=== PATIENT | male | born 1990 | race Caucasian/White ===

== ENCOUNTER 2020-12-09 10:22 | Emergency (ER) | payer SELFPAY ==
[2020-12-09 11:20] LABS: Absolute Lymphocytes (CBC) 3.8 K/uL (0.7-4.9); Basophils % 0.9 % (0-1.3); Hematocrit 44.7 % (39.6-49.0); Lymphocytes % 38.1 % (15.3-44.8); MPV 8.3 fL (7.6-11.3); RBC Red Blood Cell Count 4.71 M/uL (4.33-5.43)
[2020-12-09 11:38] LABS: Protime INR 1.21
[2020-12-09] MEDS ORDERED: NA CHLORIDE 0.9% 1,000 ML ONE (11:59)
[2020-12-09] MEDS ORDERED: LORazepam 2 MG/ML VIAL ONE (11:59)
[2020-12-09 12:01] LABS: ALT/SGPT 15 U/L (12-78); AST/SGOT 11 U/L (15-37); Albumin 4.5 g/dL (3.4-5.0); Alkaline Phosphatase 63 U/L (45-117); BUN Blood Urea Nitrogen 12 mg/dL (7-18); Bicarbonate 23 mmol/L (21-32); Bilirubin Direct 0.1 mg/dL (0-0.2); Bilirubin Total 0.6 mg/dL (0.2-1.0); Glucose Level 107 mg/dL (74-106); Potassium 3.5 mmol/L (3.5-5.1); Protein, Total 8.6 g/dL (6.4-8.2); Sodium Level 138 mmol/L (136-145)
[2020-12-09] MEDS ORDERED: NICOTINE 21 MG/PAT TD ONE (13:03)
--- NOTE | 2020-12-09 14:19 | ER ---
Nurse's Notes [facility] Name: Eladio Villagomez Age: 30 yrs Sex: Male : 1990 Arrival Date: 12/09/2020 Time: 10:23 Bed 16 Private MD: Diagnosis: Major depressive disorder, recurrent;Attention-deficit hyperactivity disorder, unspecified type;Suicidal ideations Presentation: 12/09 10:24 Note Pt and waterworks chief engineer taken to triage room. Introduced self (RN) then asked how ca1 waterworks chief engineer is related to pt. Started taking VS. Machine did not register BP, pt was asked to sit back a bit and relax arm where BP cuff was at to cycle BP machine again. Thelma states, "you know this is a crisis, you gotta be patient with him, I want a another nurse and step out of the room". Thelma stood up and was belligerent. Called community health program coordinator to call CN and notified situation. Ivory registration brought pt and fiance to room 16. 11:05 Chief complaint: Patient states: suicidal ideation. Coronavirus screen: At this time, iw the client does not indicate any symptoms associated with coronavirus-19. Ebola Screen: Patient negative for fever greater than or equal to 101.5 degrees Fahrenheit, and additional compatible Ebola Virus Disease symptoms Patient denies exposure to infectious person. Patient denies travel to an Ebola-affected area in the 21 days before illness onset. No symptoms or risks identified at this time. Risk Assessment: Do you want to hurt yourself or someone else? Patient reports desire/thoughts of hurting themselves or someone else. Provider notified. 11:05 Acuity: TREY 2 iw 11:05 Method Of Arrival: Ambulatory iw 12:06 Initial Sepsis Screen: Does the patient meet any 2 criteria? No. Patient's initial jd3 sepsis screen is negative. Does the patient have a suspected source of infection? No. Patient's initial sepsis screen is negative. Onset of symptoms was December 08, 2020. Historical: - Allergies: 12:06 No Known Allergies; jd3 - Home Meds: 12:06 None [Active]; jd3 - PMHx: 12:06 None; jd3 - PSHx: 12:06 None; jd3 - Immunization history:: Adult Immunizations unknown. - Social history:: Smoking status: Patient reports the use of cigarette tobacco products, denies chronic smoking, but will smoke occasionally. - Family history:: not pertinent. Screenin:05 Abuse screen: Denies threats or abuse. Nutritional screening: No deficits noted. jd3 Tuberculosis screening: No symptoms or risk factors identified. Fall Risk Ambulatory Aid- None/Bed Rest/Nurse Assist (0 pts). Gait- Normal/Bed Rest/Wheelchair (0 pts) Mental Status- Oriented to own ability (0 pts). Total [place] Fall Scale indicates No Risk (0-24 pts). Assessment: 10:30 Reassessment: pt states he is here for a mental evaluation and is having suicidal iw thoughts. 10:35 Reassessment: Elan Chu called to ER, pt and visitor remain noncompliant with hospital iw policy, pt is not allowed to have a visitor in room with him due to the nature of his visit. 10:44 Reassessment: afterschool and Brigette Wiggins RN in lobby speaking with pt and visitor, iw pt agitated, speaking loudly, visitor remains adamant that she needs to be in room with pt. 10:50 Reassessment: KYLEE HOLLAND in lobby speaking with pt and visitor. iw 11:04 Reassessment: pt has agreed to be evaluated by ER MD and visitor is to remain in lobby iw or outside, both verbalized understanding of policy. 11:30 General: Appears in no apparent distress. comfortable, Behavior is cooperative, jd3 anxious, restless. Pain: Denies pain. Neuro: Level of Consciousness is awake, alert, obeys commands, Oriented to person, place, time, situation, Reports occasional dizziness and falling down for a "long time now.". Cardiovascular: Denies chest pain, Capillary refill < 3 seconds Patient's skin is warm and dry. Rhythm is regular. Respiratory: Airway is patent Respiratory effort is even, unlabored, Respiratory pattern is regular, symmetrical, Denies cough, shortness of breath. GI: No signs and/or symptoms were reported involving the gastrointestinal system. : No signs and/or symptoms were reported regarding the genitourinary system. EENT: No signs and/or symptoms were reported regarding the EENT system. Derm: Skin is intact, Skin is dry, Skin is normal, Skin temperature is warm. Musculoskeletal: Circulation, motion, and sensation intact. Range of motion: intact in all extremities. 12:07 Reassessment: Patient appears in no apparent distress at this time. No changes from jd3 previously documented assessment. Patient and/or family updated on plan of care and expected duration. Pain level reassessed. Patient is alert, oriented x 3, equal unlabored respirations, skin warm/dry/pink. 12:58 Reassessment: Patient appears in no apparent distress at this time. Patient and/or jd3 family updated on plan of care and expected duration. Pain level reassessed. Patient is alert, oriented x 3, equal unlabored respirations, skin warm/dry/pink. pt report feeling slightly better, reports wanting a cigarette. 13:30 Reassessment: Patient appears in no apparent distress at this time. No changes from jd3 previously documented assessment. Patient and/or family updated on plan of care and expected duration. Pain level reassessed. Patient is alert, oriented x 3, equal unlabored respirations, skin warm/dry/pink. 14:03 Reassessment: Patient appears in no apparent distress at this time. Patient and/or jd3 family updated on plan of care and expected duration. Pain level reassessed. Patient is alert, oriented x 3, equal unlabored respirations, skin warm/dry/pink. Patient states feeling better. 14:31 Reassessment: Patient appears in no apparent distress at this time. Patient and/or jd3 family updated on plan of care and expected duration. Pain level reassessed. Patient is alert, oriented x 3, equal unlabored respirations, skin warm/dry/pink. pt reporting no SI or HI thoughts at this time. even and steady gait upon discharge, pt reported understanding of discharge instructions and plans for fallow-up. Psych: 11:30 [place] Suicide Severity Screening: In the past month, have you wished you were jd3 or wished you could go to sleep and not wake up? Patient responds "yes." Based off the client's responses additional C-SSRS screening is required. "In the past month, have you actually had any thoughts of killing yourself?" Patient responds "no." "In your lifetime, have you ever done anything, started to do anything, or prepared to do anything to end your life?" Patient responds "yes." Patient reports suicidal intent within 3 past months. pt reporting "wanting help in fear of loosing everything." was seen in the past for the psych problem was non-compliment with meds. pt reports realizing the need for meds and help at this time. Subjective: Patient's mood is elevated, hopeless, Delusions are denied, Hallucinations are denied Having thoughts of suicide. Plan for suicide is to cut self with knife. Objective: Patient is cooperative, restless, Speech is loud, Affect is appropriate. Interventions: Removed personal items and placed in bag. Patient placed in hospital gown. Searched person for dangerous items. Belonging list filled out. Safety Checks: Personal items have been removed. Door is open. No visitors are present at this time. Pt denies substance abuse. 14:33 Commitment: Patient will be a voluntary commitment. jd3 Vital Signs: 11:51 BP 153 / 90; Pulse 81; Resp 17 S; Pulse Ox 97% on R/A; jd3 ED Course: 10:23 Patient arrived in ED. as 10:55 [address] pd of pt and girlfriend being aggressive with staff. bd 10:59 Augstin Goode MD is Attending Physician. shantal 11:06 Triage completed. iw 11:09 Initial lab(s) drawn, by me, sent to lab. Inserted saline lock: 20 gauge in right sr5 antecubital area, using aseptic technique. Blood collected. 11:39 Jose Elias Sky, RN is Primary Nurse. jd3 12:05 Arm band placed on. jd3 12:06 Patient has correct armband on for positive identification. Placed in gown. Bed in low jd3 position. Side rails up X 1. Valuables inventory done. Given to family. Locked in safe. See valuables checklist. Pulse ox on. NIBP on. 12:07 Acetaminophen Sent. mh5 12:07 Basic Metabolic Panel Sent. mh5 12:07 CBC with Diff Sent. mh5 12:08 ETOH Level Sent. mh5 12:09 Warm blanket given. mh5 12:09 EKG done, by ED staff, reviewed by Agustin Goode MD. 5 12:10 Safety checks: Items removed: yes. Door open/sign placed on door: yes. Family/friend mh5 present: no. Sitter present: Yes. 14:17 Alvaro Sanders MD is Referral Physician. [facility] 14:33 No provider procedures requiring assistance completed. IV discontinued, intact, jd3 bleeding controlled, No redness/swelling at site. Pressure dressing applied. Administered Medications: 11:50 Drug: NS 0.9% 1000 ml Route: IV; Rate: 1 bolus; Site: right antecubital; jd3 12:50 Follow up: Response: No adverse reaction; IV Status: Completed infusion; IV Intake: jd3 1000ml 11:50 Drug: Ativan 1 mg Route: IVP; Site: right antecubital; jd3 12:50 Follow up: Response: No adverse reaction jd3 13:00 Drug: Nicoderm CQ 21 mg/24 hr 1 patches Route: Transdermal; Site: affected area; jd3 14:36 Follow up: Response: No adverse reaction jd3 Intake: 12:50 IV: 1000ml; Total: 1000ml. jd3 Outcome: 14:18 Discharge ordered by . shantal 14:33 Discharged to home ambulatory, with family. jd3 14:33 Condition: stable 14:33 Discharge instructions given to patient, Instructed on discharge instructions, follow up and referral plans. medication usage, Demonstrated understanding of instructions, follow-up care, medications, Prescriptions given X 1. 14:37 Patient left the ED. jd3 Signatures: Twyla Hernandez Corey, MD MD cha Martinez, Amelia as Williams, Irene, RN RN iw Resecker, Sam, RN RN 5 Veronica March Jonathon, RN RN jd3 Acob, Cheryl, RN RN ca1 Corrections: (The following items were deleted from the chart) 11:53 11:51 BP 153 / 101; Pulse 81bpm; Resp 17bpm; Spontaneous; Pulse Ox 97% RA; jd3 jd3 12:03 11:58 [place] Suicide Severity Screening: In the past month, have you wished you were jd3 or wished you could go to sleep and not wake up? Patient responds "yes." "In the past month, have you actually had any thoughts of killing yourself?" Patient responds "no." "In your lifetime, have you ever done anything, started to do anything, or prepared to do anything to end your life?" Patient responds "yes." Patient reports suicidal intent within 3 past months. jd3 12:05 11:58 Subjective: Patient's mood is elevated, hopeless, Delusions are denied, jd3 Hallucinations are denied Having thoughts of suicide. Plan for suicide is to cut self with knife [facility] : 11:58 Objective: Patient is cooperative, restless, Speech is loud, Affect is j appropriate, [facility] : 11:58 Interventions: Removed personal items and placed in bag. Patient placed in [facility] hospital gown. Searched person for dangerous items. Belonging list filled out. [facility] : 11:58 Safety Checks: Personal items have been removed. Door is open. No visitors are [facility] present at this time. [facility] : 11:58 Pt denies substance abuse [place] [id number] : 11:58 [place] Suicide Severity Screening: In the past month, have you wished you were j or wished you could go to sleep and not wake up? Patient responds "yes." Based off the client's responses additional C-SSRS screening is required. "In the past month, have you actually had any thoughts of killing yourself?" Patient responds "no." "In your lifetime, have you ever done anything, started to do anything, or prepared to do anything to end your life?" Patient responds "yes." Patient reports suicidal intent within 3 past months. pt reporting "wanting help in fear of loosing everything." was seen in the past for the psych problem was non-compliment with meds. pt reports realizing the need for meds and help at this time. jd3
--- NOTE | 2020-12-09 14:19 | EDPHYS ---
Physician Documentation [facility] Name: Eladio Villagomez Age: 30 yrs Sex: Male : 1990 Arrival Date: 12/09/2020 Time: 10:23 Bed 16 Private MD: ED Physician Agustin Goode HPI: 12/09 13:10 This 30 yrs old Male presents to ER via Ambulatory with complaints of shantal Depression, Suicidal Ideation. 13:10 The patient presents to the emergency department with anxiety, depression, suicide shantal ideation, but the patient has no formulated plan. Onset: The symptoms/episode began/occurred 2 day(s) ago. Past psychiatric history: Prior diagnosis: addiction history, depression, Psychiatric medications include: none. Associated signs and symptoms: Pertinent positives; anxiety, depression, suicide ideation. Severity of symptoms: At their worst the symptoms were mild in the emergency department the symptoms are unchanged. The patient has experienced similar episodes in the past, multiple times. Historical: - Allergies: 12:06 No Known Allergies; jd3 - Home Meds: 12:06 None [Active]; jd3 - PMHx: 12:06 None; jd3 - PSHx: 12:06 None; jd3 - Immunization history:: Adult Immunizations unknown. - Social history:: Smoking status: Patient reports the use of cigarette tobacco products, denies chronic smoking, but will smoke occasionally. - Family history:: not pertinent. ROS: 13:10 Constitutional: Negative for fever, chills, and weight loss, Eyes: Negative for injury, shantal pain, redness, and discharge, ENT: Negative for injury, pain, and discharge, Neck: Negative for injury, pain, and swelling, Cardiovascular: Negative for chest pain, palpitations, and edema, Respiratory: Negative for shortness of breath, cough, wheezing, and pleuritic chest pain, Abdomen/GI: Negative for abdominal pain, nausea, vomiting, diarrhea, and constipation, Back: Negative for injury and pain, : Negative for injury, bleeding, discharge, and swelling, MS/Extremity: Negative for injury and deformity, Skin: Negative for injury, rash, and discoloration, Neuro: Negative for headache, weakness, numbness, tingling, and seizure, Allergy/Immunology: Negative for hives, rash, and allergies, Endocrine: Negative for neck swelling, polydipsia, polyuria, polyphagia, and marked weight changes, Hematologic/Lymphatic: Negative for swollen nodes, abnormal bleeding, and unusual bruising. 13:10 Psych: Positive for anxiety, depression, suicidal ideation. Exam: 13:10 Constitutional: This is a well developed, well nourished patient who is awake, alert, shantal and in no acute distress. Head/Face: Normocephalic, atraumatic. Eyes: Pupils equal round and reactive to light, extra-ocular motions intact. Lids and lashes normal. Conjunctiva and sclera are non-icteric and not injected. Cornea within normal limits. Periorbital areas with no swelling, redness, or edema. ENT: Nares patent. No nasal discharge, no septal abnormalities noted. Tympanic membranes are normal and external auditory canals are clear. Oropharynx with no redness, swelling, or masses, exudates, or evidence of obstruction, uvula midline. Mucous membranes moist. Neck: Trachea midline, no thyromegaly or masses palpated, and no cervical lymphadenopathy. Supple, full range of motion without nuchal rigidity, or vertebral point tenderness. No Meningismus. Chest/axilla: Normal chest wall appearance and motion. Nontender with no deformity. No lesions are appreciated. Cardiovascular: Regular rate and rhythm with a normal S1 and S2. No gallops, murmurs, or rubs. Normal PMI, no JVD. No pulse deficits. Respiratory: Lungs have equal breath sounds bilaterally, clear to auscultation and percussion. No rales, rhonchi or wheezes noted. No increased work of breathing, no retractions or nasal flaring. Abdomen/GI: Soft, non-tender, with normal bowel sounds. No distension or tympany. No guarding or rebound. No evidence of tenderness throughout. Back: No spinal tenderness. No costovertebral tenderness. Full range of motion. Male : Normal genitalia with no discharge or lesions. Skin: Warm, dry with normal turgor. Normal color with no rashes, no lesions, and no evidence of cellulitis. MS/ Extremity: Pulses equal, no cyanosis. Neurovascular intact. Full, normal range of motion. Neuro: Awake and alert, GCS 15, oriented to person, place, time, and situation. Cranial nerves II-XII grossly intact. Motor strength 5/5 in all extremities. Sensory grossly intact. Cerebellar exam normal. Normal gait. 13:10 Psych: Behavior/mood is anxious, Affect is animated, Oriented to person, place, time, Patient has no thoughts/intents to harm self or others. Judgement / Insight is normal. Memory is normal. Delusions/hallucinations are not present. Vital Signs: 11:51 BP 153 / 90; Pulse 81; Resp 17 S; Pulse Ox 97% on R/A; jd3 MDM: 10:59 Patient medically screened. [facility] 13:12 Differential diagnosis: drug withdrawal. acute psychotic break, depression, psychosis shantal secondary to non-compliance. Data reviewed: vital signs, nurses notes, lab test result(s), EKG. Data interpreted: telemetry monitor: rate is 81 beats/min, rhythm is regular, Pulse oximetry: on room air is 97 %. Test interpretation: by ED physician or midlevel provider: ECG. Counseling: I had a detailed discussion with the patient and/or guardian regarding: the historical points, exam findings, and any diagnostic results supporting the discharge/admit diagnosis, lab results, the need for outpatient follow up, for definitive care, a psychiatrist. 12/09 11:00 Order name: Acetaminophen [facility] 12/09 11:00 Order name: Basic Metabolic Panel [facility] 12/09 11:00 Order name: CBC with Diff [facility] 12/09 11:00 Order name: ETOH Level [facility] 12/09 11:00 Order name: Hepatic Function; Complete Time: 13:[address] [facility] 12/09 11:00 Order name: PT-INR; Complete Time: 13:[address] [facility] 12/09 11:00 Order name: Ptt, Activated; Complete Time: 13:[address] [facility] 12/09 11:00 Order name: Salicylate; Complete Time: 13:[address] [facility] 12/09 11:01 Order name: Acetaminophen Level; Complete Time: 13:23 EDPA 12/09 11:01 Order name: Basic Metabolic Panel; Complete Time: 13:23 EDPA 12/09 11:01 Order name: CBC with Automated Diff; Complete Time: 11:40 EDPA 12/09 11:01 Order name: Alcohol Serum/Plasma; Complete Time: 13:23 EDPA 12/09 11:00 Order name: Suicide Precautions; Complete Time: 11:[address] [facility] 12/09 11:00 Order name: EKG; Complete Time: 11:[address] [facility] 12/09 11:00 Order name: EKG - Nurse/Tech; Complete Time: 11:[address] [facility] 12/09 11:00 Order name: IV Saline Lock; Complete Time: 11:[address] [facility] 12/09 11:00 Order name: Labs collected and sent; Complete Time: 11:[address] [facility] 12/09 11:00 Order name: Suicide Screening ([place]); Complete Time: 11:[address] [facility] 12/09 12:20 Order name: Diet Finger Food; Complete Time: 12:20 mh5 Administered Medications: 11:50 Drug: NS 0.9% 1000 ml Route: IV; Rate: 1 bolus; Site: right antecubital; jd3 12:50 Follow up: Response: No adverse reaction; IV Status: Completed infusion; IV Intake: jd3 1000ml 11:50 Drug: Ativan 1 mg Route: IVP; Site: right antecubital; jd3 12:50 Follow up: Response: No adverse reaction jd3 13:00 Drug: Nicoderm CQ 21 mg/24 hr 1 patches Route: Transdermal; Site: affected area; jd3 14:36 Follow up: Response: No adverse reaction jd3 Disposition: 12/09/20 14:18 Discharged to Home. Impression: Major depressive disorder, recurrent, Attention-deficit hyperactivity disorder, unspecified type, Suicidal ideations. - Condition is Stable. - Discharge Instructions: Suicidal Feelings: How to Help Yourself, Helping Someone Who is Suicidal, Major Depressive Disorder, [id number], Major Depressive Disorder. - Prescriptions for Hydroxyzine HCl 25 mg Oral Tablet - take 2 tablet by ORAL route every 6 hours As needed; 35 tablet. - Medication Reconciliation Form, Thank You Letter, Antibiotic Education, Prescription Opioid Use form. - Follow up: Private Physician; When: 2 - 3 days; Reason: Recheck today's complaints, Continuance of care, Re-evaluation by your physician. Follow up: Alvaro Sanders MD; When: 2 - 3 days; Reason: Recheck today's complaints, Re-evaluation by your physician. - Problem is new. - Symptoms have improved. Signatures: Dispatcher [employer] EDAgustin Gurrola MD MD cha Davies, Jonathon RN RN jd3 Corrections: (The following items were deleted from the chart) 14:37 14:18 12/09/2020 14:18 Discharged to Home. Impression: Major depressive disorder, jd3 recurrent; Attention-deficit hyperactivity disorder, unspecified type; Suicidal ideations. Condition is Stable. Forms are Medication Reconciliation Form, Thank You Letter, Antibiotic Education, Prescription Opioid Use. Follow up: Private Physician; When: 2 - 3 days; Reason: Recheck today's complaints, Continuance of care, Re-evaluation by your physician. Follow up: Alvaro Sanders; When: 2 - 3 days; Reason: Recheck today's complaints, Re-evaluation by your physician. Problem is new. Symptoms have improved. shantal
[2020-12-09 14:45] VITALS: BP 153/90; O2SAT 97
--- NOTE | 2020-12-10 16:37 | EKG ---
Test Date: 2020-12-09 Test Time: 11:55:27 Vaccinator: JESE MEASUREMENT RESULTS: Intervals: Rate: 58 WV: 132 QRSD: 86 QT: 416 QTc: 408 [place]: P: 49 WV: 132 QRS: 10 T: 49 INTERPRETIVE STATEMENTS: Sinus bradycardia with sinus arrhythmia Possible Left atrial enlargement Borderline ECG No previous ECG available for comparison Electronically Signed On 12-10-20 16:33:21 CDT by Riley Hanson
== END 2020-12-09 14:37 | disposition home or self-care (01) ==
LOC: ER 10:22
DX: R45.851 Suicidal ideations (principal); F90.9 Attention-deficit hyperactivity disorder, unspecified type; F17.210 Nicotine dependence, cigarettes, uncomplicated
CPT/HCPCS: 36415; 80048; 80076; 80320; 80329; 85025; 85610; 85730; 93005; 96361; 96374; 99285; J7030

== ENCOUNTER 2021-01-03 06:32 | Emergency (ER) | payer SELFPAY ==
--- NOTE | 2021-01-03 08:05 | EDPHYS ---
Physician Documentation [facility] Name: Eladio Villagomez Age: 30 yrs Sex: Male : 1990 Arrival Date: 01/03/2021 Time: 06:34 Bed 13 Private MD: ED Physician Agustin Goode HPI: 01/03 07:57 This 30 yrs old Male presents to ER via Ambulatory with complaints of shantal Toothache. 07:57 The patient presents with broken tooth/teeth, pain, redness, swelling. The problem is shantal located in the frenulum and gums. Onset: The symptoms/episode began/occurred 3 day(s) ago. Duration: The symptoms are continuous, and are steadily getting worse. Modifying factors: The symptoms are alleviated by nothing. Associated signs and symptoms: Pertinent positives: inability to eat, pain, redness in area, swelling. Severity of symptoms: At their worst the symptoms were moderate, in the emergency department the symptoms are actually worse. The patient has experienced similar episodes in the past, multiple times. Historical: - Allergies: 07:12 No Known Allergies; tr6 - Immunization history:: Adult Immunizations unknown. - Social history:: Patient uses hx of drug abuse. pt spouse reports pt has been clean for 2 months. - Family history:: not pertinent. ROS: 07:57 Constitutional: Negative for fever, chills, and weight loss, Eyes: Negative for injury, shantal pain, redness, and discharge, Neck: Negative for injury, pain, and swelling, Cardiovascular: Negative for chest pain, palpitations, and edema, Respiratory: Negative for shortness of breath, cough, wheezing, and pleuritic chest pain, Abdomen/GI: Negative for abdominal pain, nausea, vomiting, diarrhea, and constipation, Back: Negative for injury and pain, : Negative for injury, bleeding, discharge, and swelling, MS/Extremity: Negative for injury and deformity, Skin: Negative for injury, rash, and discoloration, Neuro: Negative for headache, weakness, numbness, tingling, and seizure, Psych: Negative for depression, anxiety, suicide ideation, homicidal ideation, and hallucinations, Allergy/Immunology: Negative for hives, rash, and allergies, Endocrine: Negative for neck swelling, polydipsia, polyuria, polyphagia, and marked weight changes, Hematologic/Lymphatic: Negative for swollen nodes, abnormal bleeding, and unusual bruising. 07:57 ENT: Positive for Gum pain Teeth pain Exam: 07:57 Constitutional: This is a well developed, well nourished patient who is awake, alert, shantal and in no acute distress. Head/Face: Normocephalic, atraumatic. Eyes: Pupils equal round and reactive to light, extra-ocular motions intact. Lids and lashes normal. Conjunctiva and sclera are non-icteric and not injected. Cornea within normal limits. Periorbital areas with no swelling, redness, or edema. Neck: Trachea midline, no thyromegaly or masses palpated, and no cervical lymphadenopathy. Supple, full range of motion without nuchal rigidity, or vertebral point tenderness. No Meningismus. Chest/axilla: Normal chest wall appearance and motion. Nontender with no deformity. No lesions are appreciated. Cardiovascular: Regular rate and rhythm with a normal S1 and S2. No gallops, murmurs, or rubs. Normal PMI, no JVD. No pulse deficits. Respiratory: Lungs have equal breath sounds bilaterally, clear to auscultation and percussion. No rales, rhonchi or wheezes noted. No increased work of breathing, no retractions or nasal flaring. Abdomen/GI: Soft, non-tender, with normal bowel sounds. No distension or tympany. No guarding or rebound. No evidence of tenderness throughout. Back: No spinal tenderness. No costovertebral tenderness. Full range of motion. Male : Normal genitalia with no discharge or lesions. Skin: Warm, dry with normal turgor. Normal color with no rashes, no lesions, and no evidence of cellulitis. MS/ Extremity: Pulses equal, no cyanosis. Neurovascular intact. Full, normal range of motion. Neuro: Awake and alert, GCS 15, oriented to person, place, time, and situation. Cranial nerves II-XII grossly intact. Motor strength 5/5 in all extremities. Sensory grossly intact. Cerebellar exam normal. Normal gait. Psych: Awake, alert, with orientation to person, place and time. Behavior, mood, and affect are within normal limits. 07:57 ENT: Mouth: Gums: bleeding, reddened, swollen, on the frenulum and gums. Vital Signs: 07:46 BP 132 / 87; Pulse 93; Resp 20; Pulse Ox 100% ; tr6 MDM: 07:25 Patient medically screened. [facility] 07:57 Differential diagnosis: dental caries, gingivitis, dental abscess, pericoronitis. Data [facility] reviewed: vital signs, nurses notes. Data interpreted: monitoring and evaluation advisor: rate is 93 beats/min, rhythm is regular, Pulse oximetry: on room air is 100 %. Counseling: I had a detailed discussion with the patient and/or guardian regarding: the historical points, exam findings, and any diagnostic results supporting the discharge/admit diagnosis. Administered Medications: 08:05 Drug: Bicillin L-A (penicillin G Benzathine) 1.2 million units Route: IM; Site: right tr6 deltoid; 08:26 Follow up: Response: No adverse reaction tr6 08:05 Drug: Clindamycin 300 mg Route: PO; tr6 08:26 Follow up: Response: No adverse reaction tr6 08:05 Drug: [place] (HYDROcodone-acetaminophen) 10 mg-325 mg 1 tabs Route: PO; tr6 08:26 Follow up: Response: No adverse reaction tr6 Disposition: 01/03/21 08:04 Discharged to Home. Impression: Dental caries, Dental alveolar anomalies, Dental caries, unspecified. - Condition is Stable. - Discharge Instructions: Dental Caries, Adult, Dental Pain, Dental Pain, [id number]. - Prescriptions for Clindamycin HCl 150 mg Oral Capsule - take 2 capsule by ORAL route every 6 hours for 7 days; 56 capsule. Ibuprofen 600 mg Oral Tablet - take 1 tablet by ORAL route every 6 hours As needed take with food; 20 tablet. Tylenol- Codeine #3 300-30 mg Oral Tablet - take 2 tablets by ORAL route every 4-6 hours As needed; 20 tablet. - Medication Reconciliation Form, Thank You Letter, Antibiotic Education, Prescription Opioid Use form. - Follow up: Private Physician; When: 2 - 3 days; Reason: Recheck today's complaints, Continuance of care, Re-evaluation by your physician. Follow up: Severiano Roach DDS; When: 2 - 3 days; Reason: Recheck today's complaints, Re-evaluation by your physician. - Problem is new. - Symptoms have improved. Signatures: Agustin Goode MD MD cha Ramnanan, Tiffany RN RN tr6 Corrections: (The following items were deleted from the chart) 08:29 08:04 01/03/2021 08:04 Discharged to Home. Impression: Dental caries; Dental alveolar tr6 anomalies; Dental caries, unspecified. Condition is Stable. Forms are Medication Reconciliation Form, Thank You Letter, Antibiotic Education, Prescription Opioid Use. Follow up: Private Physician; When: 2 - 3 days; Reason: Recheck today's complaints, Continuance of care, Re-evaluation by your physician. Follow up: Severiano Roach; When: 2 - 3 days; Reason: Recheck today's complaints, Re-evaluation by your physician. Problem is new. Symptoms have improved. shantal
--- NOTE | 2021-01-03 08:05 | ER ---
Nurse's Notes [facility] Name: Eladio Villagomez Age: 30 yrs Sex: Male : 1990 Arrival Date: 01/03/2021 Time: 06:34 Bed 13 Private MD: Diagnosis: Dental caries;Dental alveolar anomalies;Dental caries, unspecified Presentation: 01/03 07:09 Chief complaint: Spouse and/or significant other states: toothache. Coronavirus screen: tr6 Client denies travel out of the [place] in the last 14 days. Ebola Screen: Patient negative for fever greater than or equal to 101.5 degrees Fahrenheit, and additional compatible Ebola Virus Disease symptoms Patient denies exposure to infectious person. Patient denies travel to an Ebola-affected area in the 21 days before illness onset. Initial Sepsis Screen: Does the patient meet any 2 criteria? No. Patient's initial sepsis screen is negative. Does the patient have a suspected source of infection? Yes: Other: tooth. Risk Assessment: Do you want to hurt yourself or someone else? Patient reports no desire to harm self or others. Onset of symptoms. 07:09 Method Of Arrival: Ambulatory tr6 07:09 Acuity: TREY 3 tr6 Triage Assessment: 07:10 General: Appears uncomfortable, Behavior is calm, cooperative, appropriate for age. tr6 Pain: Complains of pain in front tooth. EENT: Reports pain in toothache. Historical: - Allergies: 07:12 No Known Allergies; tr6 - Immunization history:: Adult Immunizations unknown. - Social history:: Patient uses hx of drug abuse. pt spouse reports pt has been clean for 2 months. - Family history:: not pertinent. Screenin:10 Abuse screen: Denies threats or abuse. Denies injuries from another. Nutritional tr6 screening: No deficits noted. Tuberculosis screening: No symptoms or risk factors identified. Fall Risk None identified. Assessment: 07:20 Reassessment: see triage assessment. tr6 07:35 Reassessment: abscess above front left tooth popped. pt at sink spitting blood. on tr6 second assessment abscess drained. pt still complaining of pain. Vital Signs: 07:46 BP 132 / 87; Pulse 93; Resp 20; Pulse Ox 100% ; tr6 ED Course: 06:34 Patient arrived in ED. bp1 07:07 Arm band placed on Patient placed in an exam room, on a stretcher. ll1 07:11 Patient has correct armband on for positive identification. Bed in low position. Call tr6 light in reach. Side rails up X 1. 07:11 No provider procedures requiring assistance completed. tr6 07:24 Agustin Goode MD is Attending Physician. shantal 07:46 Triage completed. tr6 08:03 Severiano Roach DDS is Referral Physician. shantal 08:26 Patient did not have IV access during this emergency room visit. tr6 Administered Medications: 08:05 Drug: Bicillin L-A (penicillin G Benzathine) 1.2 million units Route: IM; Site: right tr6 deltoid; 08:26 Follow up: Response: No adverse reaction tr6 08:05 Drug: Clindamycin 300 mg Route: PO; tr6 08:26 Follow up: Response: No adverse reaction tr6 08:05 Drug: [place] (HYDROcodone-acetaminophen) 10 mg-325 mg 1 tabs Route: PO; tr6 08:26 Follow up: Response: No adverse reaction tr6 Outcome: 08:04 Discharge ordered by . shantal 08:26 Discharged to home ambulatory. tr6 08:26 Condition: stable 08:26 Discharge instructions given to patient. 08:29 Patient left the ED. tr6 Signatures: Agustin Goode MD MD cha Lewis, Lynsay, RN RN ll1 Ariela Adkins Tiffany, LALIT RN tr6
[2021-01-03] MEDS ORDERED: HYDROCODONE/APAP 10/325 TAB ONE (08:21)
[2021-01-03] MEDS ORDERED: PEN G BENZ LA 1.2MU/2ML SYRINGE IM ONE (08:22)
[2021-01-03 08:34] VITALS: BP 132/87; O2SAT 100
== END 2021-01-03 08:29 | disposition home or self-care (01) ==
LOC: ER 06:32
DX: K02.9 Dental caries, unspecified (principal); M26.70 Unspecified alveolar anomaly
CPT/HCPCS: 96372; 99282; J0561